=== PATIENT | male | born 1985 ===

== ENCOUNTER 2017-02-15 01:51 | Emergency (ER) | payer BC ==
[2017-02-15 02:05] VITALS: BP 127/85; PULSE 62; RESP 16; TEMP 98; O2SAT 99
--- NOTE | 2017-02-15 02:41 | C.PDOC ---
History Of Present Illness 31 year old male with a Hx of anxiety who presents to the ER with a complaint of feeling increasingly anxious. 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 Patient has been compliant with his medications but has not taken them before work because it causes him to be drowsy. Denies chest pain, palpitations, or SOB. Time Seen by Provider: 02/15/17 02:06 Chief Complaint (Nursing): Anxiety History Per: Patient History/Exam Limitations: no limitations Onset/Duration Of Symptoms: Hrs Current Symptoms Are (Timing): Still Present Suicide/Self Injury Attempted (Context): None Modifying Factor(s): None Associated Symptoms: Anxiety. denies: Depression, Suicidal Thoughts, Suicidal Plan Involuntary Hold By: None Recent travel outside of the [place]: No Past Medical History Reviewed: Historical Data, Nursing Documentation, Vital Signs Vital Signs: Last Vital Signs Temp 98 F 02/15/17 02:04 Pulse 62 02/15/17 02:04 Resp 16 02/15/17 02:04 BP 127/85 02/15/17 02:04 Pulse Ox 99 02/15/17 05:59 - Medical History PMH: Anxiety Surgical History: No Surg Hx Family History: States: Unknown Family Hx - Social History Hx Alcohol Use: No Hx Substance Use: No - Immunization History Hx Tetanus Toxoid Vaccination: No Hx Influenza Vaccination: Yes Hx Pneumococcal Vaccination: No Review Of Systems Cardiovascular: Negative for: Chest Pain, Palpitations Respiratory: Negative for: Shortness of Breath Psych: Positive for: Anxiety Physical Exam - Physical Exam Appears: Non-toxic, No Acute Distress Skin: Normal Color, Warm, Dry Head: Atraumatic, Normacephalic Eye(s): bilateral: Normal Inspection, EOMI Oral Mucosa: Moist Chest: Symmetrical, No Tenderness Cardiovascular: Rhythm Regular, No Murmur Respiratory: Normal Breath Sounds, No Rhonchi, No Wheezing Extremity: Normal ROM Neurological/Psych: Oriented x3, Normal Speech, Normal Cognition ED Course And Treatment O2 Sat by Pulse Oximetry: 99 (Room air) Pulse Ox Interpretation: Normal Progress Note: Patient instructed to follow up with psychiatrist for further evaluation. Disposition Counseled Patient/Family Regarding: Diagnosis, Need For Followup - Disposition Referrals: Non [facility] Provider, [Primary Care Provider] - Disposition: HOME/ ROUTINE Disposition Time: 02:38 Condition: STABLE Additional Instructions: Please continue current medications Follow up with your doctor for management Return to ER if worse Instructions: Anxiety (ED) Forms: Work/School/Gym Excuse, [facility] (Stateless) - Clinical Impression Clinical Impression: Anxiety - Scribe Statement The provider has reviewed the documentation as recorded by the Scribsantino Espinosa All medical record entries made by the Anaibe were at my direction and personally dictated by me. I have reviewed the chart and agree that the record accurately reflects my personal performance of the history, physical exam, medical decision making, and the department course for this patient. I have also personally directed, reviewed, and agree with the discharge instructions and disposition.
== END 2017-02-15 03:04 | disposition home or self-care (01) ==
LOC: SUPCPDRO 01:51 → C.ER 01:51
DX: F41.9 Anxiety disorder, unspecified (principal)